=== PATIENT | male | born 1965 | race Caucasian/White ===

== ENCOUNTER 2021-09-25 21:58 | Emergency (ER) | payer MEDICAID ==
[~2021-09-25] VITALS: Ht 165.1 cm; Wt 86.2 kg
--- NOTE | 2021-09-25 22:20 | NUR ---
PT BIBFAMILY C/O RT SIDED CHEST PRESSURE X 1600. PT AAOX4 BREATHING EVENLY AND UNLABORED. PT ATTACHED TO MONITOR AND POX. SKIN IS WARM AND DRY. MD AT BEDSIDE FOR EVAL. PT GIVEN BLANKET AND CALL LIGHT WITHIN REACH
--- NOTE | 2021-09-25 23:47 | NUR ---
XRAY AT BEDSIDE
[2021-09-26] MEDS ORDERED: ASPIRIN 325 MG TABLET PO ONE
[2021-09-26] MEDS ORDERED: ASPIRIN 325 MG TABLET ONE (00:06)
[2021-09-26 00:42] LABS: BASOPHILS % (AUTO) 0.5 % (0.0-2.0); EOSINOPHILS % (AUTO) 4.5 % (0.0-6.0); HEMATOCRIT 38 % (39-51); HEMOGLOBIN 12.8 g/dL (13.5-17.5); LYMPHOCYTES # (AUTO) 2.8 K/uL (0.8-4.8); LYMPHOCYTES % (AUTO) 30.7 % (20.0-44.0); MEAN CORPUSCULAR HGB CONC 34 g/dl (31.0-36.0); MEAN CORPUSCULAR VOLUME 84 fL (80-96); MONOCYTES # (AUTO) 0.7 K/uL (0.1-1.30); MONOCYTES % (AUTO) 7.9 % (2.0-12.0); NEUTROPHILS # (AUTO) 5.2 K/uL (1.8-8.9); NEUTROPHILS % (AUTO) 56.4 % (43.0-81.0); PLATELET COUNT (AUTO) 345 K/uL (150-450); RED BLOOD CELL COUNT(AUTO) 4.58 MIL/uL (4.5-6.0); WHITE BLOOD COUNT (AUTO) 9.2 K/uL (4.3-11.0)
--- NOTE | 2021-09-26 00:42 | NUR ---
called lab to f/u on results, 15 min
[2021-09-26 00:56] LABS: CALCIUM, SERUM 8.5 mg/dL (8.5-10.1); CARBON DIOXIDE 32 mmol/L (21-32); CHLORIDE 103 mmol/L (98-107); CREATININE 1.1 mg/dL (0.6-1.3); GLUCOSE 111 mg/dL (74-106); POTASSIUM 3.3 mmol/L (3.5-5.1); SODIUM SERUM 141 mmol/L (136-145); UREA NITROGEN, BLOOD 19 mg/dL (7-18)
--- NOTE | 2021-09-26 01:56 | NUR ---
lab at bedside
[2021-09-26] MEDS ORDERED: IBUP-1955 PO (03:03)
--- NOTE | 2021-09-26 03:08 | NUR ---
Patient discharged to home in stable condition. Written and verbal after care instructions given. Patient verbalizes understanding of instruction. PT ambulatory with a steady gait
[2021-09-26 03:12] VITALS: BP 130/90
== END 2021-09-26 03:08 | disposition home or self-care (01) ==
LOC: ER 21:58
DX: R07.89 Other chest pain (principal); I10 Essential (primary) hypertension
CPT/HCPCS: 36415; 71045-TC; 80048-TC; 84484-TC; 85025-TC

== ENCOUNTER 2023-10-11 22:13 | Emergency (ER) | payer MEDICAID, OTHER ==
[~2023-10-11] VITALS: Ht 167.6 cm; Wt 104.3 kg
[~2023-10-11 22:13] MED LIST: IBUP-1955 PO
[2023-10-11] MEDS ORDERED: IPRATROPIUM NEB FS 0.5 MG/2.5 ML AMPUL.NEB NEB STA (23:12)
[2023-10-11] MEDS ORDERED: BENZ1LOZ58 PO (23:22)
[2023-10-11] MEDS ORDERED: ALBU18HF2 INH (23:22)
[2023-10-11] MEDS ORDERED: BENZ-13 PO (23:22)
[2023-10-11] MEDS ORDERED: ALBUTEROL FS 2.5 MG/0.5 ML VIAL.NEB NEB ONE (23:30)
[2023-10-11] MEDS ORDERED: ALBUTEROL FS 2.5 MG/0.5 ML VIAL.NEB ONE (23:37)
[2023-10-11] MEDS ORDERED: IPRATROPIUM NEB FS 0.5 MG/2.5 ML AMPUL.NEB ONE (23:38)
[2023-10-11 23:42] VITALS: O2SAT 98
[2023-10-11 23:53] VITALS: O2SAT 100
[2023-10-12] MEDS ORDERED: ALBUTEROL FS 2.5 MG/0.5 ML VIAL.NEB NEB ONE
[2023-10-12] MEDS ORDERED: IPRATROPIUM NEB FS 0.5 MG/2.5 ML AMPUL.NEB NEB ONE
[2023-10-12] MEDS ORDERED: predniSONE 20 MG TABLET ONE ×2 (00:08→00:14)
[2023-10-12] MEDS ORDERED: PRED20TA GT ×2 (00:09→00:15)
[2023-10-12] MEDS ORDERED: predniSONE 20 MG TABLET PO ONE ×2 (00:30)
[2023-10-12] MEDS ORDERED: IPRATROPIUM NEB FS 0.5 MG/2.5 ML AMPUL.NEB ONE (01:16)
[2023-10-12] MEDS ORDERED: ALBUTEROL FS 2.5 MG/0.5 ML VIAL.NEB ONE (01:16)
[2023-10-12 01:18] VITALS: O2SAT 99
[2023-10-12 01:36] VITALS: O2SAT 100
[2023-10-12 02:06] VITALS: BP 128/88; TEMP 98; O2SAT 100
== END 2023-10-12 02:07 | disposition home or self-care (01) ==
LOC: ER 22:21
DX: J20.9 Acute bronchitis, unspecified (principal); R05.9 Cough, unspecified; I10 Essential (primary) hypertension
CPT/HCPCS: 99285; 71045; 82962; 94640 ×2; J7512 ×2

== ENCOUNTER 2023-10-17 19:40 | Emergency (ER) | payer OTHER ==
[~2023-10-17] VITALS: Ht 167.6 cm; Wt 104.3 kg
[~2023-10-17 19:40] MED LIST changes: +ALBU18HF2 INH; +BENZ-13 PO; +BENZ1LOZ58 PO; +PRED20TA GT
[2023-10-17 22:00] VITALS: O2SAT 98
[2023-10-17] MEDS ORDERED: ALBUTEROL FS 2.5 MG/3 ML VIAL.NEB NEB ONE (22:00)
[2023-10-17] MEDS ORDERED: IPRATROPIUM NEB FS 0.5 MG/2.5 ML AMPUL.NEB NEB ONE (22:00)
[2023-10-17] MEDS ORDERED: IPRATROPIUM NEB FS 0.5 MG/2.5 ML AMPUL.NEB ONE (22:00)
[2023-10-17] MEDS ORDERED: ALBUTEROL FS 2.5 MG/3 ML VIAL.NEB ONE (22:00)
[2023-10-17 22:15] VITALS: O2SAT 99
[2023-10-17] MEDS ORDERED: GUAI-671 PO (23:06)
[2023-10-17 23:27] VITALS: BP 120/89; TEMP 98.3; O2SAT 98
== END 2023-10-17 23:20 | disposition home or self-care (01) ==
LOC: ER 19:47
DX: J20.9 Acute bronchitis, unspecified (principal); R05.9 Cough, unspecified; I10 Essential (primary) hypertension; E11.9 Type 2 diabetes mellitus without complications; Z20.822 Contact with and (suspected) exposure to COVID-19
CPT/HCPCS: 99284; 71045; 87426; 87804 ×2; 94640; C9803

== ENCOUNTER 2023-10-26 21:19 | Emergency (ER) | payer OTHER ==
[~2023-10-26] VITALS: Ht 157.5 cm; Wt 102.1 kg
[~2023-10-26 21:19] MED LIST changes: +GUAI-671 PO
[2023-10-26] MEDS ORDERED: predniSONE 20 MG TABLET ONE (22:16)
[2023-10-26] MEDS ORDERED: IPRATROPIUM NEB FS 0.5 MG/2.5 ML AMPUL.NEB NEB ONE (22:30)
[2023-10-26] MEDS ORDERED: ALBUTEROL FS 2.5 MG/3 ML VIAL.NEB CONTNEB ONE (22:30)
[2023-10-26] MEDS ORDERED: predniSONE 20 MG TABLET PO ONE (22:30)
[2023-10-26] MEDS ORDERED: ALBUTEROL FS 2.5 MG/3 ML VIAL.NEB ONE (22:42)
[2023-10-26] MEDS ORDERED: IPRATROPIUM NEB FS 0.5 MG/2.5 ML AMPUL.NEB ONE (22:42)
[2023-10-26 22:43] LABS: BASOPHILS % (AUTO) 0.3 % (0.0-2.0); EOSINOPHILS # (AUTO) 0.5 K/uL (0.0-0.7); EOSINOPHILS % (AUTO) 3.9 % (0.0-6.0); HEMATOCRIT 38 % (39-51); HEMOGLOBIN 12.1 g/dL (13.5-17.5); LYMPHOCYTES # (AUTO) 1.6 K/uL (0.8-4.8); LYMPHOCYTES % (AUTO) 12.6 % (20.0-44.0); MEAN CORPUSCULAR HEMOGLOBIN 26 PG (26.0-33.0); MEAN CORPUSCULAR HGB CONC 32 g/dl (31.0-36.0); MEAN CORPUSCULAR VOLUME 83 fL (80-96); MONOCYTES % (AUTO) 8.5 % (2.0-12.0); NEUTROPHILS # (AUTO) 9.2 K/uL (1.8-8.9); NEUTROPHILS % (AUTO) 74.7 % (43.0-81.0); PLATELET COUNT (AUTO) 372 K/uL (150-450); RED BLOOD CELL COUNT(AUTO) 4.57 MIL/uL (4.5-6.0); RED CELL DISTRIBUTION WIDTH 16.6 % (11.5-15.0); WHITE BLOOD COUNT (AUTO) 12.3 K/uL (4.3-11.0)
[2023-10-26 22:48] VITALS: O2SAT 94
[2023-10-26 22:53] LABS: CREATININE 1.2 mg/dL (0.6-1.3); POTASSIUM 3.9 mmol/L (3.5-5.1)
[2023-10-26 23:00] LABS: ALBUMIN 3.2 g/dL (3.4-5.0); BILIRUBIN,DIRECT 0.1 mg/dL (0.0-0.2); BILIRUBIN,TOTAL 0.5 mg/dL (0.2-1.0); TOTAL PROTEIN, SERUM 7.1 g/dL (6.4-8.2)
[2023-10-26] MEDS ORDERED: ALBU6.7H9 INH (23:42)
[2023-10-26] MEDS ORDERED: TYL2T PO (23:42)
[2023-10-26] MEDS ORDERED: PRED50TA PO (23:42)
[2023-10-26 23:50] VITALS: BP 132/70; TEMP 98
[2023-10-26 23:54] VITALS: O2SAT 97; O2SAT 99
== END 2023-10-26 23:50 | disposition home or self-care (01) ==
LOC: ER 21:20
DX: J98.01 Acute bronchospasm (principal); J06.9 Acute upper respiratory infection, unspecified; R05.9 Cough, unspecified; I10 Essential (primary) hypertension; E11.9 Type 2 diabetes mellitus without complications; F41.9 Anxiety disorder, unspecified; Z20.822 Contact with and (suspected) exposure to COVID-19
CPT/HCPCS: 99285; 71045; 87426; 87804 ×2; 85025; 80048; 80076; 36415; 94644; J7512; C9803